=== PATIENT | male | born 1945 | race Caucasian/White ===

== ENCOUNTER 2022-08-29 19:15 | Emergency (ER) | payer MEDICARE, OTHER ==
[2022-08-29] MEDS ORDERED: Sodium Chloride 0.9% 10 ML Syringe FLUSH PRN (20:22)
[2022-08-29] MEDS ORDERED: Furosemide 40 MG/4 ML VIAL IVPUSH ONE (21:14)
[2022-08-29] MEDS ORDERED: Magnesium Sulfate/Water 4 GM in Premix Bag 1 BAG IV ONE (21:15)
[2022-08-29] MEDS ORDERED: cefTRIAXone 2 GM in Sodium Chloride 0.9% 100 ML IV STA (21:34)
== END 2022-08-30 05:31 | disposition home or self-care (01) ==
LOC: JD.ED 19:15
DX: J18.9 Pneumonia, unspecified organism (principal); E83.42 Hypomagnesemia; I50.9 Heart failure, unspecified; E11.65 Type 2 diabetes mellitus with hyperglycemia; K21.9 Gastro-esophageal reflux disease without esophagitis; E11.40 Type 2 diabetes mellitus with diabetic neuropathy, unspecified; Z87.891 Personal history of nicotine dependence
CPT/HCPCS: 36415; 71045; 80053; 83735; 83880; 84484; 85025; 85379; 85610; 87040; 93005; 96365; 96366; 96367; 96375; 99285; J0696; J1940; J3475; J3490; 93010

== ENCOUNTER 2022-09-10 11:08 | Day surgery (SDC) | payer MEDICARE, OTHER ==
[2022-09-10] MEDS ORDERED: Glucagon,Human Recombinant 1 MG Vial IVPUSH ONE (12:04)
[2022-09-10] MEDS ORDERED: Etomidate 2 MG/ML 20 ML SDV IVPUSH ONE (13:57)
[2022-09-10] MEDS ORDERED: Succinylcholine 200 MG/10 ML MDV ONE (13:57)
[2022-09-10] MEDS ORDERED: fentaNYL 100 MCG/2 ML SDV ONE (13:58)
[2022-09-10] MEDS ORDERED: Sugammadex Sodium 200 MG/2 ML VIAL ONE (14:01)
== END 2022-09-10 15:53 | disposition home or self-care (01) ==
LOC: JD.ED 11:08 → JD.SDS 13:31
PROVIDERS: ATTEND Specialist
DX: T18.128A Food in esophagus causing other injury, initial encounter (principal); I48.0 Paroxysmal atrial fibrillation; I25.10 Atherosclerotic heart disease of native coronary artery without angina pectoris; I11.0 Hypertensive heart disease with heart failure; I50.9 Heart failure, unspecified; E78.00 Pure hypercholesterolemia, unspecified; G47.30 Sleep apnea, unspecified; K21.9 Gastro-esophageal reflux disease without esophagitis; E11.40 Type 2 diabetes mellitus with diabetic neuropathy, unspecified; Z98.890 Other specified postprocedural states; Z79.899 Other long term (current) drug therapy; Z87.891 Personal history of nicotine dependence
CPT/HCPCS: 43247; 82947; 96374; 99284; J0330; J1610; J3010; J3490; 99285

== ENCOUNTER 2022-11-14 09:57 | Emergency (ER) | payer MEDICARE, OTHER | END 2022-11-14 12:54 | disposition home or self-care (01) | LOC: JD.ED 09:57 | DX: S61.411A Laceration without foreign body of right hand, initial encounter (principal); S05.11XA Contusion of eyeball and orbital tissues, right eye, initial encounter; E11.42 Type 2 diabetes mellitus with diabetic polyneuropathy; I11.0 Hypertensive heart disease with heart failure; I50.9 Heart failure, unspecified; I25.2 Old myocardial infarction; I25.10 Atherosclerotic heart disease of native coronary artery without angina pectoris; E78.00 Pure hypercholesterolemia, unspecified; Z86.16 Personal history of COVID-19; Z79.01 Long term (current) use of anticoagulants; W01.0XXA Fall on same level from slipping, tripping and stumbling without subsequent striking against object, initial encounter | CPT/HCPCS: 70450; 70450-26; 70486; 70486-26; 99282; 99283 ==

== ENCOUNTER 2022-11-26 10:07 | Emergency (ER) | payer MEDICARE, OTHER ==
[2022-11-26] MEDS ORDERED: Ciprofloxacin 0.3% Ophth Soln 5 ML Bottle EYELF ONE (11:16)
== END 2022-11-26 12:15 | disposition home or self-care (01) ==
LOC: JD.ED 10:07
DX: L73.1 Pseudofolliculitis barbae (principal); H00.014 Hordeolum externum left upper eyelid; S61.411D Laceration without foreign body of right hand, subsequent encounter; I48.91 Unspecified atrial fibrillation; I25.10 Atherosclerotic heart disease of native coronary artery without angina pectoris; I11.0 Hypertensive heart disease with heart failure; I50.9 Heart failure, unspecified; I25.2 Old myocardial infarction; E78.00 Pure hypercholesterolemia, unspecified; K21.9 Gastro-esophageal reflux disease without esophagitis; E11.40 Type 2 diabetes mellitus with diabetic neuropathy, unspecified; Z86.16 Personal history of COVID-19; Z79.899 Other long term (current) drug therapy; Z79.01 Long term (current) use of anticoagulants; Z95.1 Presence of aortocoronary bypass graft
CPT/HCPCS: 99283; A9270

== ENCOUNTER 2023-01-23 20:30 | Emergency (ER) | payer MEDICARE, OTHER ==
[2023-01-23 22:14] LABS: BASOPHILS ABSOLUTE AUTO 0.02 K/mm3 (0.01-0.08); BASOPHILS PERCENT AUTO 0.2 % (0.1-1.2); EOSINOPHILS ABSOLUTE AUTO 0.05 K/mm3 (0.04-0.54); EOSINOPHILS PERCENT AUTO 0.4 (0.8-7.0); HEMATOCRIT 41.4 % (40.1-51.0); HEMOGLOBIN 13.7 gm/dl (13.7-17.5); IMMATURE GRAN ABSOLUTE AUTO 0.07 K/mm3 (0.00-0.10); IMMATURE GRAN PERCENT AUTO 0.6 % (<=1.0); LYMPHOCYTES PERCENT AUTO 11.3 % (21.8-53.1); MEAN CORPUSCULAR HEMOGLOBIN 31.7 pg (25.7-32.2); MEAN CORPUSCULAR HGB CONC 33.1 g/dl (32.2-35.5); MEAN CORPUSCULAR VOLUME 95.8 fl (79.0-92.2); MEAN PLATELET VOLUME 9.4 fl (9.4-12.3); MONOCYTES ABSOLUTE AUTO 1.41 K/mm3 (0.30-0.82); MONOCYTES PERCENT AUTO 12.3 % (5.3-12.2); NEUTROPHILS ABSOLUTE AUTO 8.63 K/mm3 (1.78-5.38); NEUTROPHILS PERCENT AUTO 75.2 % (34.0-67.9); PLATELET COUNT,PLT 193 K/mm3 (163-337); RED BLOOD CELL COUNT 4.32 M/mm3 (4.63-6.08); WHITE BLOOD CELL COUNT,WBC 11.48 K/mm3 (4.23-9.07)
[2023-01-23 22:39] LABS: HEMOGLOBIN A1C 8.4 %
[2023-01-23 22:42] LABS: A/G RATIO 0.8 (1-2); ALBUMIN 3.4 g/dl (3.4-5.0); ANION GAP 11.4 (5-15); BILIRUBIN TOTAL 0.7 mg/dL (0.2-1.0); BUN/CREATININE RATIO 24.6 (14-18); CALCIUM 10.1 mg/dL (8.5-10.1); CREATININE 1.3 mg/dL (0.7-1.3); EST CRCL DRUG DOSING (CG) 47.57 mL/min; POTASSIUM,K 4.4 mEq/L (3.5-5.1); PROTEIN TOTAL,TP 7.5 g/dl (6.4-8.2)
[2023-01-23] MEDS ORDERED: Sulfamethoxazole/Trimethoprim 800-160 MG Tab PO ONE (23:09)
[2023-01-23] MEDS ORDERED: Amoxicillin/Clavulanate K 875-125 MG Tab PO ONE (23:10)
== END 2023-01-23 23:46 | disposition home or self-care (01) ==
LOC: JD.ED 20:30
DX: E11.621 Type 2 diabetes mellitus with foot ulcer (principal); L97.519 Non-pressure chronic ulcer of other part of right foot with unspecified severity; I48.91 Unspecified atrial fibrillation; I25.10 Atherosclerotic heart disease of native coronary artery without angina pectoris; I11.0 Hypertensive heart disease with heart failure; I50.9 Heart failure, unspecified; I25.2 Old myocardial infarction; E78.00 Pure hypercholesterolemia, unspecified; K21.9 Gastro-esophageal reflux disease without esophagitis; E11.40 Type 2 diabetes mellitus with diabetic neuropathy, unspecified; Z87.891 Personal history of nicotine dependence; Z79.899 Other long term (current) drug therapy; Z79.01 Long term (current) use of anticoagulants
CPT/HCPCS: 36415; 73610; 73630; 80053; 82947; 83036; 85025; 86140; 99283; A9270

== ENCOUNTER 2024-03-08 14:25 | Inpatient (IN) | payer MEDICARE ==
[2024-03-08 15:18] LABS: BASOPHILS PERCENT AUTO 0.5 % (0.0-1.0); EOSINOPHILS PERCENT AUTO 0.2 % (0.0-6.0); HEMATOCRIT 46.3 % (42.0-52.0); HEMOGLOBIN 15.4 gm/dl (14.0-18.0); IMMATURE GRAN ABSOLUTE AUTO 0.02 K/mm3 (0.00-0.05); IMMATURE GRAN PERCENT AUTO 0.3 % (0.0-0.4); LYMPHOCYTES ABSOLUTE AUTO 0.7 K/mm3 (1.0-4.8); LYMPHOCYTES PERCENT AUTO 11.8 % (24.0-44.0); MEAN CORPUSCULAR HEMOGLOBIN 30.7 pg (28.0-32.0); MEAN CORPUSCULAR HGB CONC 33.3 g/dl (32.0-36.0); MEAN CORPUSCULAR VOLUME 92.2 fl (83.0-99.0); MEAN PLATELET VOLUME 9.6 fl (9.4-12.4); MONOCYTES ABSOLUTE AUTO 1.2 K/mm3 (0.0-0.8); MONOCYTES PERCENT AUTO 18.7 % (0.0-8.0); NEUTROPHILS ABSOLUTE AUTO 4.3 K/mm3 (1.8-7.7); NEUTROPHILS PERCENT AUTO 68.5 % (41.0-71.0); PLATELET COUNT,PLT 160 K/mm3 (150-400); RED BLOOD CELL COUNT 5.02 M/mm3 (4.52-5.90); WHITE BLOOD CELL COUNT,WBC 6.21 K/mm3 (3.9-11.3)
[2024-03-08 15:43] LABS: LACTIC ACID 1.5 mmol/L (0.4-2.0)
[2024-03-08 15:47] LABS: ALBUMIN 3.6 g/dl (3.4-5.0); ANION GAP 9.1 (5-15); BILIRUBIN TOTAL 0.7 mg/dL (0.2-1.0); BUN/CREATININE RATIO 22.3 (14-18); C-REACTIVE PROTEIN 4.91 mg/dL (<0.30); CALCIUM 11.5 mg/dL (8.5-10.1); CREATININE 1.3 mg/dL (0.7-1.3); EST CRCL DRUG DOSING (CG) 48.27 mL/min; MAGNESIUM 1.7 mg/dL (1.8-2.4); POTASSIUM,K 4.1 mEq/L (3.5-5.1); PROTEIN TOTAL,TP 7.3 g/dl (6.4-8.2)
[2024-03-08] MEDS: Sodium Chloride 0.9% 1,000 ML IV SCH (15:57)
[2024-03-08] MEDS: Sodium Chloride 0.9% 10 ML Syringe FLUSH PRN (15:59)
[2024-03-08 16:05] LABS: APPEARANCE,URINE CLEAR (Clear); BILIRUBIN,URINE NEGATIVE (Negative); COLOR,URINE YELLOW (Yellow); GLUCOSE,URINE NEGATIVE (Negative); KETONES,URINE NEGATIVE (Negative); LEUKOCYTE ESTERASE,URINE NEGATIVE (Negative); NITRITE,URINE NEGATIVE (Negative); OCCULT BLOOD,URINE NEGATIVE (Negative); PROTEIN,URINE NEGATIVE (Negative); UROBILINOGEN,URINE 0.2 (0.2-1.0)
[2024-03-08 16:41] LABS: CORONAVIRUS COVID-19 NAA POSITIVE (NEGATIVE); INFLUENZA A NAA NEGATIVE (NEGATIVE); RESPIRATORY SYNCYTIAL VIR NAA NEGATIVE (NEGATIVE)
[2024-03-08] MEDS ORDERED: Ondansetron 4 MG/2 ML SDV IV PRN (18:23)
[2024-03-08] MEDS ORDERED: Sennosides/Docusate Sodium 50-8.6 MG Tab PO PRN (18:23)
[2024-03-08] MEDS ORDERED: Morphine 2 MG/ML SYRINGE IVPUSH PRN (18:23)
[2024-03-08] MEDS ORDERED: 50% Dextrose in Water 50 ML Syringe IVPUSH PRN (18:45)
[2024-03-08] MEDS ORDERED: Trolamine Salicylate/Aloe Vera 10% Crm 85 GM Tube TOP PRN (18:46)
[2024-03-08] MEDS ORDERED: Distilled Water Ophth Irrig Soln 120 ML Bottle EYEBOTH PRN (18:48)
[2024-03-08] MEDS ORDERED: Albuterol 6.7 GM Inhaler INH PRN (19:01)
[2024-03-08] MEDS ORDERED: Nitroglycerin 0.4 MG Tab.SL SL PRN (19:01)
[2024-03-08 19:56] LABS: SALICYLATE 0.5 mg/dL (2.8-20)
[2024-03-08] MEDS: Magnesium Sulfate/Water 4 GM in Premix Bag 1 BAG IV ONE (20:20)
[2024-03-08 20:37] LABS: TSH 0.308 uIU/mL (0.358-3.74)
[2024-03-08 20:38] LABS: FOLIC ACID 37.4 ng/mL (8.6-58.9)
[2024-03-08] MEDS: Gabapentin 100 MG Cap PO SCH (20:46)
[2024-03-08] MEDS: Pramipexole 0.25 MG Tab PO SCH (20:46)
[2024-03-08] MEDS: Rosuvastatin 10 MG Tab PO SCH (20:46)
[2024-03-08] MEDS: Sertraline 50 MG Tab PO SCH (20:46)
[2024-03-08] MEDS: Formoterol/Mometasone 200-5 MCG 8.8 GM Inhaler INH SCH (20:57)
[2024-03-08 20:58] LABS: T4 FREE 0.97 ng/dL (0.76-1.46)
[2024-03-08] MEDS ORDERED: Non-Formulary Medication 1 Each (Budesonide/Formoterol Fumarate [Symbicort 160-4.5 Mcg Inh INH SCH (21:00)
[2024-03-09] MEDS: Pantoprazole 40 MG Tab.CR PO SCH (05:39)
[2024-03-09 06:05] LABS: BUN/CREATININE RATIO 21.8 (14-18); CALCIUM 10.4 mg/dL (8.5-10.1); CREATININE 1.1 mg/dL (0.7-1.3); EST CRCL DRUG DOSING (CG) 57.05 mL/min; MAGNESIUM 2.2 mg/dL (1.8-2.4); PHOSPHORUS 2.1 mg/dL (2.6-4.7)
[2024-03-09] MEDS: Insulin Lispro 100 Unit/ML 3 ML KwikPen SUBCUT SCH (08:30)
[2024-03-09] MEDS: Clopidogrel 75 MG Tab PO SCH (08:31)
[2024-03-09] MEDS: Cholecalciferol (Vitamin D3) 25 MCG Tab PO SCH (08:31)
[2024-03-09] MEDS: Multivitamin Tab PO SCH (08:31)
[2024-03-09] MEDS: Zinc Sulfate 220 MG Cap PO SCH (08:31)
[2024-03-09] MEDS: Enoxaparin 40 MG/0.4 ML Syringe SUBCUT SCH (08:31)
[2024-03-09] MEDS: Aspirin 81 MG Tab.EC PO SCH (08:32)
[2024-03-09] MEDS: Insulin Glargine,Human Rec. Analog 100 Units/ML 3 ML Pen SUBCUT SCH ×2 (08:32→22:49)
[2024-03-09] MEDS: Metoprolol Succinate 50 MG Tab.ER PO SCH (08:32)
[2024-03-09] MEDS: Bumetanide 1 MG Tab PO SCH (08:32)
[2024-03-09] MEDS ORDERED: UBIDECARENONE 60 MG PO SCH (09:00)
[2024-03-09] MEDS ORDERED: ALPHA LIPOIC ACID 600 MG PO SCH (09:00)
[2024-03-09] MEDS: Sodium Phosphate 30 MMOLE in Sodium Chloride 0.9% 250 ML IV ONE (09:09)
[2024-03-09] MEDS: Formoterol/Mometasone 200-5 MCG 8.8 GM Inhaler INH SCH (09:32)
[2024-03-09] MEDS ORDERED: hydrALAZINE 20 MG/ML SDV IVPUSH PRN (10:33)
[2024-03-09] MEDS: Tiotropium Bromide 4 GM Inhalation Spray (2.5mcg/1 dose; 10 doses) INH SCH (13:15)
[2024-03-09] MEDS: Aluminum Hydroxide/Magnesium Hydroxide/Simethicone Susp 30 ML Cup PO PRN (22:48)
[2024-03-10 06:18] LABS: ANION GAP 9.3 (5-15); BUN/CREATININE RATIO 26.4 (14-18); CREATININE 1.1 mg/dL (0.7-1.3); EST CRCL DRUG DOSING (CG) 57.05 mL/min; PHOSPHORUS 2.9 mg/dL (2.6-4.7); POTASSIUM,K 3.3 mEq/L (3.5-5.1)
[2024-03-10] MEDS ORDERED: Potassium Phosphates 30 MMOLE in Sodium Chloride 0.9% 500 ML IV SCH ×2 (09:30→12:00)
[2024-03-10] MEDS: Sodium Chloride 0.9% 500 ML IV ONE (10:12)
[2024-03-10] MEDS: Potassium Phosphates 30 MMOLE in Sodium Chloride 0.9% 500 ML IV ONE (11:06)
[2024-03-10] MEDS: Gabapentin 100 MG Cap PO SCH (15:27)
[2024-03-10] MEDS: guaiFENesin/Dextromethorphan 100-10 MG/5 ML Soln 5 ML Cup PO PRN (21:50)
[2024-03-11] MEDS: Acetaminophen 325 MG Tab PO PRN (03:37)
[2024-03-11 05:07] LABS: ANION GAP 13.6 (5-15); BUN/CREATININE RATIO 24.2 (14-18); CALCIUM 9.5 mg/dL (8.5-10.1); CREATININE 1.2 mg/dL (0.7-1.3); EST CRCL DRUG DOSING (CG) 52.29 mL/min; MAGNESIUM 1.4 mg/dL (1.8-2.4); PHOSPHORUS 3.4 mg/dL (2.6-4.7); POTASSIUM,K 3.6 mEq/L (3.5-5.1)
[2024-03-11] MEDS: Magnesium Sulfate/Water 50 ML IV ONE (07:28)
[2024-03-11] MEDS ORDERED: Magnesium Sulfate (4.06 MEQ/ML) 5 GM/10 ML SDV IV ONE (07:30)
[2024-03-11] MEDS: Metoprolol Succinate 50 MG Tab.ER PO SCH (08:08)
[2024-03-11] MEDS: Magnesium Sulfate/Water 2 GM in Premix Bag 1 BAG IV ONE (12:43)
[2024-03-11] MEDS: guaiFENesin 600 MG Tab.ER PO SCH (12:44)
[2024-03-11] MEDS: Gabapentin 100 MG Cap PO SCH (14:34)
[2024-03-11] MEDS: guaiFENesin/Dextromethorphan 100-10 MG/5 ML Soln 5 ML Cup PO SCH (14:34)
[2024-03-11] MEDS: Albuterol/Ipratropium 3.0-0.5 MG/3 ML Neb Soln NEB SCH (15:27)
[2024-03-11] MEDS: Insulin Glargine,Human Rec. Analog 100 Units/ML 3 ML Pen SUBCUT SCH (20:42)
[2024-03-11] MEDS ORDERED: Non-Formulary Medication 1 Each (Fluticasone/Salmeterol 120 PUFF/INHALER Inhaler) INH SCH (21:00)
[2024-03-12 05:35] LABS: ANION GAP 9.9 (5-15); CALCIUM 9.4 mg/dL (8.5-10.1); EST CRCL DRUG DOSING (CG) 62.75 mL/min; MAGNESIUM 1.8 mg/dL (1.8-2.4); POTASSIUM,K 3.9 mEq/L (3.5-5.1)
[2024-03-12] MEDS: Magnesium Sulfate/Water 2 GM in Premix Bag 1 BAG IV ONE (08:54)
[2024-03-12] MEDS: Gabapentin 100 MG Cap PO SCH (08:58)
[2024-03-12] MEDS: Formoterol/Mometasone 200-5 MCG 8.8 GM Inhaler INH SCH (16:12)
[2024-03-12] MEDS: Insulin Glargine,Human Rec. Analog 100 Units/ML 3 ML Pen SUBCUT SCH (21:35)
[2024-03-13] MEDS: Naphazoline 0.12%/Zinc Sulfate/Glycerin Ophth Soln 15 ML Bottle EYEBOTH PRN (14:16)
[2024-03-13] MEDS: Benzonatate 100 MG Cap PO PRN (18:02)
[2024-03-13] MEDS: Insulin Glargine,Human Rec. Analog 100 Units/ML 3 ML Pen SUBCUT SCH (20:39)
[2024-03-13] MEDS: Albuterol/Ipratropium 3.0-0.5 MG/3 ML Neb Soln NEB PRN (21:22)
[2024-03-14] MEDS: Insulin Glargine,Human Rec. Analog 100 Units/ML 3 ML Pen SUBCUT SCH (11:10)
[2024-03-14 18:47] LABS: VITAMIN B1, WHOLE BLOOD 135 nmol/L (70-180)
[2024-03-15] MEDS: Acetaminophen/HYDROcodone 325-5 MG Tab PO PRN (20:41)
[2024-03-15] MEDS: Carboxymethylcellulose Sodium 1% Ophth Gel 15 ML Bottle EYEBOTH PRN (20:42)
[2024-03-17] MEDS: Melatonin 3 MG Tab PO PRN
== END 2024-03-19 09:36 | DRG 178 ==
LOC: JD.ED 14:25 → JD.MS 18:23
PROVIDERS: ADMIT Student in an Organized Health Care Education/Training Program; ATTEND Student in an Organized Health Care Education/Training Program
DX: U07.1 COVID-19 (principal); G93.40 Encephalopathy, unspecified; I50.9 Heart failure, unspecified; I13.0 Hypertensive heart and chronic kidney disease with heart failure and stage 1 through stage 4 chronic kidney disease, or unspecified chronic kidney disease; I50.22 Chronic systolic (congestive) heart failure; I48.91 Unspecified atrial fibrillation; E78.00 Pure hypercholesterolemia, unspecified; I25.10 Atherosclerotic heart disease of native coronary artery without angina pectoris; E78.5 Hyperlipidemia, unspecified; I27.20 Pulmonary hypertension, unspecified; E11.42 Type 2 diabetes mellitus with diabetic polyneuropathy; K21.9 Gastro-esophageal reflux disease without esophagitis; I25.2 Old myocardial infarction; F32.A Depression, unspecified; H02.059 Trichiasis without entropion unspecified eye, unspecified eyelid; N18.9 Chronic kidney disease, unspecified; H91.93 Unspecified hearing loss, bilateral; E83.42 Hypomagnesemia; E11.22 Type 2 diabetes mellitus with diabetic chronic kidney disease; K44.9 Diaphragmatic hernia without obstruction or gangrene; H04.123 Dry eye syndrome of bilateral lacrimal glands; R63.0 Anorexia; R47.1 Dysarthria and anarthria; Z95.1 Presence of aortocoronary bypass graft; Z79.4 Long term (current) use of insulin; Z79.02 Long term (current) use of antithrombotics/antiplatelets; Z86.16 Personal history of COVID-19; Z79.82 Long term (current) use of aspirin; Z98.890 Other specified postprocedural states; Z79.899 Other long term (current) drug therapy; Z96.21 Cochlear implant status; Z68.25 Body mass index [BMI] 25.0-25.9, adult
CPT/HCPCS: 0241U; 36415; 70450; 70450-26; 71045; 71045-26; 80048; 80053; 80143; 80179; 80307; 81003; 82607; 82746; 82947; 83605; 83735; 83880; 84100; 84425; 84439; 84443; 84484; 85025; 86140; 87040; 93005; 93010; 94640; 94667; 94668; 94760; 94761; 96360; 96361; 97110-GP; 97161-GP; 99223; 99231; 99232; 99233; 99239; 99285; 99285-25; A9270-GY; J1650; J1815; J1815-GY; J3475; J3490; J7030; J7040; J7050; J7620-GY

== ENCOUNTER 2024-09-02 18:44 | Inpatient (IN) | payer MEDICARE ==
[2024-09-02 19:40] LABS: BASOPHILS PERCENT AUTO 0.4 % (0.0-1.0); EOSINOPHILS ABSOLUTE AUTO 0.2 K/mm3 (0.0-0.4); EOSINOPHILS PERCENT AUTO 1.6 % (0.0-6.0); HEMATOCRIT 42.5 % (42.0-52.0); IMMATURE GRAN ABSOLUTE AUTO 0.08 K/mm3 (0.00-0.05); IMMATURE GRAN PERCENT AUTO 0.8 % (0.0-0.4); LYMPHOCYTES ABSOLUTE AUTO 1.5 K/mm3 (1.0-4.8); LYMPHOCYTES PERCENT AUTO 15.2 % (24.0-44.0); MEAN CORPUSCULAR HEMOGLOBIN 30.1 pg (28.0-32.0); MEAN CORPUSCULAR HGB CONC 32.9 g/dl (32.0-36.0); MEAN CORPUSCULAR VOLUME 91.4 fl (83.0-99.0); MEAN PLATELET VOLUME 9.6 fl (9.4-12.4); MONOCYTES ABSOLUTE AUTO 0.9 K/mm3 (0.0-0.8); PLATELET COUNT,PLT 198 K/mm3 (150-400); RED BLOOD CELL COUNT 4.65 M/mm3 (4.52-5.90); WHITE BLOOD CELL COUNT,WBC 9.58 K/mm3 (3.9-11.3)
[2024-09-02 19:56] LABS: HEMOGLOBIN A1C 7.9 %
[2024-09-02] MEDS ORDERED: Naloxone 0.4 MG/ML SDV IVPUSH PRN (19:59)
[2024-09-02 20:00] LABS: ALBUMIN 3.5 g/dl (3.4-5.0); ANION GAP 11.2 (5-15); BILIRUBIN TOTAL 0.8 mg/dL (0.2-1.0); BUN/CREATININE RATIO 30.9 (14-18); CREATININE 1.1 mg/dL (0.7-1.3); EST CRCL DRUG DOSING (CG) 57.05 mL/min; POTASSIUM,K 4.2 mEq/L (3.5-5.1); PROTEIN TOTAL,TP 7.1 g/dl (6.4-8.2)
[2024-09-02] MEDS ORDERED: Sodium Chloride 0.9% 10 ML Syringe FLUSH PRN (22:48)
[2024-09-02] MEDS: oxyCODONE 5 MG Tab PO PRN (23:21)
[2024-09-03] MEDS: Morphine 2 MG/ML SYRINGE IVPUSH PRN (05:47)
[2024-09-03] MEDS ORDERED: Albuterol/Ipratropium 3.0-0.5 MG/3 ML Neb Soln NEB PRN (07:13)
[2024-09-03] MEDS: Insulin Lispro 100 Unit/ML 3 ML KwikPen SUBCUT SCH (07:47)
[2024-09-03] MEDS: Docusate Sodium 100 MG Cap PO SCH (07:48)
[2024-09-03] MEDS: Enoxaparin 40 MG/0.4 ML Syringe SUBCUT SCH (07:48)
[2024-09-03] MEDS ORDERED: CENEGERMIN BKBJ EYEBOTH SCH (11:45)
[2024-09-03] MEDS: Acetaminophen 325 MG Tab PO PRN (12:33)
[2024-09-03] MEDS: Metoprolol Succinate 50 MG Tab.ER PO SCH (12:33)
[2024-09-03] MEDS: Pantoprazole 40 MG Tab.CR PO SCH (12:33)
[2024-09-03] MEDS: Insulin Glargine,Human Rec. Analog 100 Units/ML 3 ML Pen SUBCUT SCH (12:35)
[2024-09-03] MEDS: Formoterol/Mometasone 200-5 MCG 8.8 GM Inhaler INH SCH (12:43)
[2024-09-03] MEDS: Pramipexole 0.25 MG Tab PO SCH (14:08)
[2024-09-03] MEDS: Gabapentin 100 MG Cap PO SCH (14:08)
[2024-09-03] MEDS: Ondansetron 4 MG/2 ML SDV IV PRN (16:35)
[2024-09-03] MEDS ORDERED: Sertraline 50 MG Tab PO SCH (21:00)
[2024-09-03] MEDS: Sertraline 50 MG Tab PO SCH (21:18)
[2024-09-03] MEDS: Rosuvastatin 10 MG Tab PO SCH (21:19)
[2024-09-03] MEDS: CYCLOSPORINE 0.05% EYEBOTH SCH (21:30)
[2024-09-03] MEDS: OPTH EYEBOTH SCH (21:30)
[2024-09-04 04:46] LABS: BASOPHILS ABSOLUTE AUTO 0.1 K/mm3 (0.0-0.2); BASOPHILS PERCENT AUTO 0.6 % (0.0-1.0); EOSINOPHILS ABSOLUTE AUTO 0.5 K/mm3 (0.0-0.4); EOSINOPHILS PERCENT AUTO 4.4 % (0.0-6.0); HEMATOCRIT 41.4 % (42.0-52.0); HEMOGLOBIN 13.6 gm/dl (14.0-18.0); IMMATURE GRAN ABSOLUTE AUTO 0.08 K/mm3 (0.00-0.05); IMMATURE GRAN PERCENT AUTO 0.7 % (0.0-0.4); LYMPHOCYTES ABSOLUTE AUTO 1.2 K/mm3 (1.0-4.8); LYMPHOCYTES PERCENT AUTO 11.3 % (24.0-44.0); MEAN CORPUSCULAR HEMOGLOBIN 29.7 pg (28.0-32.0); MEAN CORPUSCULAR HGB CONC 32.9 g/dl (32.0-36.0); MEAN CORPUSCULAR VOLUME 90.4 fl (83.0-99.0); MEAN PLATELET VOLUME 9.8 fl (9.4-12.4); MONOCYTES ABSOLUTE AUTO 1.3 K/mm3 (0.0-0.8); MONOCYTES PERCENT AUTO 11.9 % (0.0-8.0); NEUTROPHILS ABSOLUTE AUTO 7.6 K/mm3 (1.8-7.7); NEUTROPHILS PERCENT AUTO 71.1 % (41.0-71.0); PLATELET COUNT,PLT 179 K/mm3 (150-400); RED BLOOD CELL COUNT 4.58 M/mm3 (4.52-5.90); WHITE BLOOD CELL COUNT,WBC 10.74 K/mm3 (3.9-11.3)
[2024-09-04 05:09] LABS: A/G RATIO 0.8 (1-2); ANION GAP 11.8 (5-15); CALCIUM 9.8 mg/dL (8.5-10.1); EST CRCL DRUG DOSING (CG) 60.83 mL/min; MAGNESIUM 1.9 mg/dL (1.8-2.4); POTASSIUM,K 4.8 mEq/L (3.5-5.1); PROTEIN TOTAL,TP 6.7 g/dl (6.4-8.2)
[2024-09-04] MEDS: Tiotropium Bromide 4 GM Inhalation Spray (2.5mcg/1 dose; 10 doses) INH SCH (08:17)
[2024-09-04] MEDS ORDERED: Venlafaxine 37.5 MG Cap.ER PO SCH (09:00)
[2024-09-04] MEDS: Cholecalciferol (Vitamin D3) 25 MCG Tab PO SCH (09:29)
[2024-09-04] MEDS: Bumetanide 1 MG Tab PO SCH (09:29)
[2024-09-04] MEDS: valACYclovir 500 MG Tab PO SCH (09:30)
[2024-09-04] MEDS: Doxycycline Monohydrate 100 MG Cap PO SCH (09:30)
[2024-09-04] MEDS: Polyethylene Glycol 3350 Powder 17 GM Packet PO PRN (16:59)
[2024-09-05 04:39] LABS: BASOPHILS ABSOLUTE AUTO 0.1 K/mm3 (0.0-0.2); BASOPHILS PERCENT AUTO 0.4 % (0.0-1.0); EOSINOPHILS ABSOLUTE AUTO 0.3 K/mm3 (0.0-0.4); EOSINOPHILS PERCENT AUTO 2.3 % (0.0-6.0); HEMATOCRIT 40.6 % (42.0-52.0); HEMOGLOBIN 13.3 gm/dl (14.0-18.0); IMMATURE GRAN PERCENT AUTO 0.9 % (0.0-0.4); LYMPHOCYTES ABSOLUTE AUTO 1.4 K/mm3 (1.0-4.8); LYMPHOCYTES PERCENT AUTO 12.7 % (24.0-44.0); MEAN CORPUSCULAR HEMOGLOBIN 29.7 pg (28.0-32.0); MEAN CORPUSCULAR HGB CONC 32.8 g/dl (32.0-36.0); MEAN CORPUSCULAR VOLUME 90.6 fl (83.0-99.0); MEAN PLATELET VOLUME 9.9 fl (9.4-12.4); MONOCYTES ABSOLUTE AUTO 1.5 K/mm3 (0.0-0.8); NEUTROPHILS ABSOLUTE AUTO 7.9 K/mm3 (1.8-7.7); NEUTROPHILS PERCENT AUTO 70.7 % (41.0-71.0); PLATELET COUNT,PLT 183 K/mm3 (150-400); RED BLOOD CELL COUNT 4.48 M/mm3 (4.52-5.90); WHITE BLOOD CELL COUNT,WBC 11.19 K/mm3 (3.9-11.3)
[2024-09-05 05:21] LABS: A/G RATIO 0.7 (1-2); ALBUMIN 2.7 g/dl (3.4-5.0); ANION GAP 12.2 (5-15); BILIRUBIN TOTAL 1.1 mg/dL (0.2-1.0); CREATININE 1.2 mg/dL (0.7-1.3); EST CRCL DRUG DOSING (CG) 50.69 mL/min; MAGNESIUM 1.7 mg/dL (1.8-2.4); POTASSIUM,K 4.2 mEq/L (3.5-5.1); PROTEIN TOTAL,TP 6.7 g/dl (6.4-8.2)
[2024-09-05] MEDS: Magnesium Sulf/Wat 2 GM/50 mL 2 GM in Premix Bag 1 BAG IV ONE (07:38)
[2024-09-05] MEDS: Insulin Glargine,Human Rec. Analog 100 Units/ML 3 ML Pen SUBCUT SCH (09:49)
== END 2024-09-05 16:45 | DRG 536 ==
LOC: JD.ED 18:44 → JD.MS 19:55
PROVIDERS: ADMIT Family Medicine; ATTEND Student in an Organized Health Care Education/Training Program
DX: S72.001A Fracture of unspecified part of neck of right femur, initial encounter for closed fracture (principal); I42.9 Cardiomyopathy, unspecified; I13.0 Hypertensive heart and chronic kidney disease with heart failure and stage 1 through stage 4 chronic kidney disease, or unspecified chronic kidney disease; I50.32 Chronic diastolic (congestive) heart failure; E78.5 Hyperlipidemia, unspecified; I25.10 Atherosclerotic heart disease of native coronary artery without angina pectoris; W19.XXXA Unspecified fall, initial encounter; I48.91 Unspecified atrial fibrillation; J45.909 Unspecified asthma, uncomplicated; K21.9 Gastro-esophageal reflux disease without esophagitis; E11.42 Type 2 diabetes mellitus with diabetic polyneuropathy; F32.A Depression, unspecified; N18.9 Chronic kidney disease, unspecified; E11.22 Type 2 diabetes mellitus with diabetic chronic kidney disease; Z96.21 Cochlear implant status; H91.93 Unspecified hearing loss, bilateral; R29.6 Repeated falls; I08.3 Combined rheumatic disorders of mitral, aortic and tricuspid valves; Z95.1 Presence of aortocoronary bypass graft; Z79.51 Long term (current) use of inhaled steroids; Z79.899 Other long term (current) drug therapy; Z79.4 Long term (current) use of insulin; Z79.82 Long term (current) use of aspirin; Z79.02 Long term (current) use of antithrombotics/antiplatelets; I25.2 Old myocardial infarction; Z87.81 Personal history of (healed) traumatic fracture; Z85.46 Personal history of malignant neoplasm of prostate; Z98.890 Other specified postprocedural states
CPT/HCPCS: 36415; 71045; 71045-26; 73502-26-RT; 73502-RT; 80053; 82947; 83036; 83735; 85025; 93005; 93306; 94640; 94761; 99285; A9270-GY; J1650; J1815; J1815-GY; J2270; J2405; J3475; J3490